=== PATIENT | female | born 1960 | race Two or more races ===

== ENCOUNTER 2017-12-13 07:39 | Outpatient (CLI) | payer OTHER | END 2017-12-13 07:52 | disposition home or self-care (01) | LOC: MRI 07:39 | DX: K83.0 Cholangitis (principal); K83.3 Fistula of bile duct; K81.0 Acute cholecystitis; K85.00 Idiopathic acute pancreatitis without necrosis or infection | CPT/HCPCS: 74181 ==

== ENCOUNTER 2017-12-26 06:05 | Day surgery (SDC) | payer OTHER ==
[2017-12-26] MEDS ORDERED: JANUVIA25 MG PO (22:05)
[2017-12-26] MEDS ORDERED: FORTAMET1000 MG PO (22:05)
[2017-12-26] MEDS ORDERED: DIOVAN320 MG PO (22:05)
[2017-12-26] MEDS ORDERED: SIMVASTATIN5 MG PO (22:06)
== END 2017-12-26 17:20 | disposition home or self-care (01) ==
LOC: AMB-ENDOS 06:05 → CIR.AMB 14:45 → AMB-ENDOS 17:20
DX: K50.80 Crohn's disease of both small and large intestine without complications (principal)

== ENCOUNTER 2017-12-26 21:59 | Inpatient (IN) | payer OTHER ==
[~2017-12-26] VITALS: Ht 154.9 cm; Wt 58.1 kg
[2017-12-26] MEDS ORDERED: DIOVAN320 MG PO (22:05)
[2017-12-26] MEDS ORDERED: FORTAMET1000 MG PO (22:05)
[2017-12-26] MEDS ORDERED: JANUVIA25 MG PO (22:05)
[2017-12-26] MEDS ORDERED: SIMVASTATIN5 MG PO (22:06)
[2018-01-03] MEDS ORDERED: PEPCID20 MG PO ×2 (13:02→17:27)
[2018-01-03] MEDS ORDERED: PROTONIX40 MG PO ×2 (13:03→17:26)
[2018-01-03] MEDS ORDERED: AMLODIPINE BES2.5 MG PO (13:05)
[2018-01-03] MEDS ORDERED: FUSION PLUS CA1 EACH PO (13:06)
[2018-01-03] MEDS ORDERED: FUSION CAPSULE1 EACH PO ×2 (13:07→17:28)
[2018-01-03] MEDS ORDERED: ZOFRAN4 MG PO ×2 (13:09→17:27)
[2018-01-03] MEDS ORDERED: METOCLOPRAMIDE H5 MG PO ×2 (13:12→17:27)
[2018-01-03] MEDS ORDERED: HUMALOG KW100 UNIT/1 SUBCUTANEO (13:15)
[2018-01-03] MEDS ORDERED: NORVASC2.5 M1 PO (17:22)
[2018-01-03] MEDS ORDERED: LOSARTAN POTAS100 MG PO (17:23)
[2018-01-03] MEDS ORDERED: HumaLOG 100 UNIT/1 M SUBCUTANEO (17:25)
[2018-01-03] MEDS ORDERED: LEVAQUIN750 MG PO (17:31)
[2018-01-03] MEDS ORDERED: MAGNESIUM400 MG PO (17:31)
[2018-01-03] MEDS ORDERED: KLOR-CON M2020 MEQ PO (17:34)
== END 2018-01-03 20:08 | disposition home or self-care (01) | DRG 439 ==
LOC: ER 21:59 → SEC-K 12-27 13:39 → ICU-2 12-27 13:39 → SEC-K 12-28 18:47 → MEDJ 12-29 11:30 → SEC-K 12-29 12:08 → MEDI 12-29 17:30 → MEDJ 12-30 03:02
PROC: 4A033R1 Measurement of Arterial Saturation, Peripheral, Percutaneous Approach (ICD-10-PCS; principal; 2017-12-27)
PROC: 02HV33Z Insertion of Infusion Device into Superior Vena Cava, Percutaneous Approach (ICD-10-PCS; 2017-12-27)
PROC: 3E0F7GC Introduction of Other Therapeutic Substance into Respiratory Tract, Via Natural or Artificial Opening (ICD-10-PCS; 2017-12-29)
PROC: BW25ZZZ Computerized Tomography (CT Scan) of Chest, Abdomen and Pelvis (ICD-10-PCS; 2017-12-30)
DX: K85.10 Biliary acute pancreatitis without necrosis or infection (principal); E89.89 Other postprocedural endocrine and metabolic complications and disorders; J90 Pleural effusion, not elsewhere classified; J98.11 Atelectasis; Y84.8 Other medical procedures as the cause of abnormal reaction of the patient, or of later complication, without mention of misadventure at the time of the procedure; Y92.098 Other place in other non-institutional residence as the place of occurrence of the external cause; K57.10 Diverticulosis of small intestine without perforation or abscess without bleeding; K80.50 Calculus of bile duct without cholangitis or cholecystitis without obstruction; I10 Essential (primary) hypertension; E11.9 Type 2 diabetes mellitus without complications; D64.89 Other specified anemias

== ENCOUNTER 2018-01-17 09:00 | Emergency (ER) | payer OTHER ==
[~2018-01-17] VITALS: Ht 152.4 cm; Wt 55.3 kg
[~2018-01-17 09:00] MED LIST: AMLODIPINE BES2.5 MG PO; DIOVAN320 MG PO; FORTAMET1000 MG PO; FUSION CAPSULE1 EACH PO; FUSION PLUS CA1 EACH PO; HUMALOG KW100 UNIT/1 SUBCUTANEO; HumaLOG 100 UNIT/1 M SUBCUTANEO; JANUVIA25 MG PO; KLOR-CON M2020 MEQ PO; LEVAQUIN750 MG PO; LOSARTAN POTAS100 MG PO; MAGNESIUM400 MG PO; METOCLOPRAMIDE H5 MG PO; NORVASC2.5 M1 PO; PEPCID20 MG PO; PROTONIX40 MG PO; SIMVASTATIN5 MG PO; ZOFRAN4 MG PO
[2018-01-17] MEDS ORDERED: URSO250 MG PO (09:13)
[2018-01-17] MEDS ORDERED: HUMALOG100 UNIT/1 SQ (09:13)
== END 2018-01-17 12:20 | disposition home or self-care (01) ==
LOC: ER 09:00
DX: R19.7 Diarrhea, unspecified (principal)

== ENCOUNTER 2018-05-01 07:30 | Outpatient (CLI) | payer OTHER ==
[~2018-05-01 07:30] MED LIST changes: +HUMALOG100 UNIT/1 SQ; +URSO250 MG PO
== END 2018-05-01 07:37 | disposition home or self-care (01) ==
LOC: MRI 07:30
DX: K80.50 Calculus of bile duct without cholangitis or cholecystitis without obstruction (principal); K57.10 Diverticulosis of small intestine without perforation or abscess without bleeding
CPT/HCPCS: 74181